=== PATIENT | male | born 1995 | race Caucasian/White ===

== ENCOUNTER 2019-10-04 07:40 | Emergency (ER) | payer OTHER, SELFPAY ==
[2019-10-04 07:44] VITALS: BP 156/78; PULSE 88; RESP 17; TEMP 36.9; O2SAT 99; BMI 29.0
--- NOTE | 2019-10-04 07:57 | ED.DCSUM_ITS ---
History of Present Illness Chief Complaint: Shortness of Breath Informant: Patient Onset: Hours - 2 Activity at onset: Light Activity - gradual onset Timing: Continuous Quality: - - tightness Current Severity: Moderate Maximum Severity: Moderate Worsened by: Exertion Relieved by: Albuterol - only very little help from his inhaler Associated Symptoms: Cough. 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 He has seasonal asthma. He frequently gets flareups with significant weather changes. Yesterday the temperatures were 50 degrees, clear with intermittent rain showers, this morning there is an inch of snow on the ground. States he has had some sinus congestion with a mild nonproductive cough for the past 3 months or so. No recent fevers. - Past Medical History (1) Seasonal asthma Status: Chronic Past Medical History - Allergies and Home Meds Allergies/Adverse Reactions: Allergies Penicillins [PCN] Allergy (Verified 10/04/19 07:41) Rash Primary Care Physician: Yordan Faust MD [Primary Care Provider] - Smoking Status: Never smoker Drugs: None Review of Systems General: Denies: Chills, Fever, Sweats Eyes: Denies: Visual changes - bilaterally, Diplopia ENT: Denies: Bilateral ear pain, Rhinorrhea, Sore throat Cardiovascular: Reports: Chest pain. Denies: Palpitations Respiratory: Reports: Dyspnea, Cough, Dyspnea on exertion. Denies: Sputum, Orthopnea Gastrointestinal: Denies: Abdominal pain, Nausea, Vomiting, Diarrhea, Melena, Hematochezia Genitourinary: Denies: Dysuria, Hematuria, Frequency Musculoskeletal: Denies: Back pain, Swelling, Extremity Pain Skin: Denies: Rash, Wounds Neurological: Denies: Headache, Weakness, Numbness Physical Exam Vital Signs/Narrative: Vital Signs Temp Pulse Resp BP Pulse Ox 10/04/19 07:44 98.5 F 88 17 156/78 H 99 Inital Vital Signs reviewed: Yes General: Well nourished, Well developed, No Acute Distress - speaking in full sentences Head: Normocephalic, Atraumatic Eyes: Perrl, EOMI ENT: Moist mucous membranes, No rhinorrhea. Negative for: Sinus tenderness Neck: Supple, Nontender, No lymphadenopathy Cardiovascular: Regular rate, Regular rhythm, No murmurs. Negative for: Tachycardia Respiratory: No distress, CTA bilaterally, Chest nontender Extremities: Nontender, No edema. Negative for: Calf Tenderness Skin: Normal color, No rash, No Trauma Neurological: Alert, Oriented x3, Cranial nerves II-XII grossly intact, Normal Strength, Normal Sensation, Normal Gait Psychological: Normal affect, Normal Mood Diagnostic/Tx/Re-eval Clinical Impression(s) from Imaging Studies Chest X-Ray 10/04/19 09:01 IMPRESSION: Normal x-ray examination of the chest. Electronically Signed: Logan Cancinojonathan, at 9:17 EDT , Service support , - Rhythm Strip Rhythm Strip: Sinus Tach Rate: 101 Ectopy: None - EKG Initial EKG Interpretation: No Acute Injury Pattern, Sinus Tachycardia Treatment - Dyspnea: Albuterol, Atrovent Repeat Evaluation: No change - Medical Decision Making Patient was initially given a duo nebulizer and albuterol aerosols, but he states it really did not help much. He still looks well clinically. I still think he is having reactive airway as the etiology of his symptoms, given the HPI and his history, but an EKG and chest x-ray were done to ensure we were not missing anything, these were normal. He was then given terbutaline and monitored, and he did have some improvement with that. He was placed on prednisone as well, that was started here, and he was given a prescription for a short burst and appropriate discharge instructions. ED Disposition - Plan for ED Patient: Disposition: Home or Assisted Living Diagnosis: Asthma with acute exacerbation Instructions: ED REACTIVE AIRWAY DISEASE Adult Prescriptions: Prednisone [Deltasone] 40 mg PO DAILY #10 tab Transmission Status: Pending to [facility]/pharmacy #[id number] Referrals: Yordan Faust MD [Primary Care Provider] - As Needed
[2019-10-04 08:08] VITALS: O2SAT 99
[2019-10-04 08:15] VITALS: PULSE 74; RESP 18
[2019-10-04] MEDS: Ipratropium/Albuterol Sulfate 3 ML AMPUL.NEB INHALATION (08:15)
[2019-10-04] MEDS: Albuterol 2.5 MG/3 ML VIAL.NEB. INHALATION (08:15)
--- NOTE | 2019-10-04 08:54 | EKG12_ITS ---
Test Reason : SOB Blood Pressure : / mmHG Vent. Rate : 101 BPM Atrial Rate : 101 BPM P-R Int : 156 ms QRS Dur : 096 ms QT Int : 366 ms P-R-T Axes : 047 -25 038 degrees QTc Int : 474 ms Sinus tachycardia Minimal voltage criteria for LVH, may be normal variant Borderline ECG Confirmed by ABEBE ORTEZ, RIANNA ([id number]), magazine editor DARRYN DWYER ([id number]) on 10/07/2019 8:35:45 AM Referred By: MALACHI Confirmed By:RIANNA LOMAS MD
[2019-10-04] MEDS: predniSONE 20 MG Tablet 40 MG PO (08:58)
--- NOTE | 2019-10-04 09:01 | RAD_ITS ---
STUDY: X-RAY CHEST REASON FOR EXAM: Male, 23 years old. INCREASED SOB x2 HOURS -- COUGH, CONGESTION -- HX OF ASTHMA TECHNIQUE: Single AP portable view of the chest. COMPARISON: Comparison is made with prior examination dated February 27, 2012. FINDINGS: The lungs are clear and expanded. There is no demonstrated pleural abnormality. Normal size heart. Normal mediastinum and festus. Normal visualized pulmonary arteries. Normal visualized aortic arch and descending thoracic aorta. Normal visualized thoracic spine. The patient is status post open reduction and internal fixation of the left clavicular fracture. The fracture is healed. There is no demonstrated abnormality of the visualized soft tissue structures of the upper abdomen. RAD/Chest 1 View (Portable) IMPRESSION: Normal x-ray examination of the chest. Electronically Signed: Logan Cadet, at 9:17 EDT , Service support ,
[2019-10-04] MEDS: Terbutaline 1 MG/ML Vial 0.25 MG SC (09:45)
[2019-10-04 09:46] VITALS: BP 118/74; PULSE 73; RESP 16; O2SAT 99
[2019-10-04 10:35] VITALS: BP 124/63; PULSE 73; RESP 15; O2SAT 100
== END 2019-10-04 10:36 | disposition home or self-care (01) ==
PROVIDERS: Emergency Provider Emergency Medicine; PCP Family Medicine
DX: J45.901 Unspecified asthma with (acute) exacerbation (principal)
CPT/HCPCS: 71045; 93005; 94640; 96372; 99282

== ENCOUNTER → 2019-12-13 09:44 | Outpatient (CLI) | payer OTHER, SELFPAY | PROVIDERS: PCP Family Medicine; Visit Provider Family Medicine | DX: R30.0 Dysuria (principal) | CPT/HCPCS: 87086 ==

== ENCOUNTER → 2020-06-01 | Outpatient (CLI) | payer OTHER, SELFPAY ==
[2020-01-31 07:50] VITALS: BMI 29.0
== END | disposition home or self-care (01) ==
PROVIDERS: PCP Family Medicine; Referring Provider Family Medicine; Visit Provider Family Medicine
DX: Z20.828 Contact with and (suspected) exposure to other viral communicable diseases (principal)
CPT/HCPCS: 87635; U0003

== ENCOUNTER → 2021-02-16 | Outpatient (CLI) | payer OTHER, SELFPAY | END | disposition home or self-care (01) | LOC: LAB 20:08 → LABSPEC 20:14 | PROVIDERS: PCP Family Medicine; Visit Provider Family Medicine | DX: Z20.822 Contact with and (suspected) exposure to COVID-19 (principal) | CPT/HCPCS: 87635; U0005; U0003 ==

== ENCOUNTER → 2021-06-21 | Outpatient (CLI) | payer OTHER, SELFPAY | END | disposition home or self-care (01) | PROVIDERS: PCP Family Medicine; Referring Provider Family Medicine; Visit Provider Family Medicine | DX: Z20.822 Contact with and (suspected) exposure to COVID-19 (principal) | CPT/HCPCS: 87635; U0005; U0003 ==

== ENCOUNTER → 2021-06-23 | Outpatient (CLI) | payer OTHER, SELFPAY | END | disposition home or self-care (01) | LOC: LABSPEC 17:14 | PROVIDERS: PCP Family Medicine; Visit Provider Nurse Practitioner Family | DX: Z20.822 Contact with and (suspected) exposure to COVID-19 (principal) | CPT/HCPCS: 87633; 87635; U0005; U0003 ==

== ENCOUNTER → 2022-03-01 | Outpatient (CLI) | payer OTHER, SELFPAY | END | disposition home or self-care (01) | PROVIDERS: PCP Family Medicine; Visit Provider Family Medicine | DX: Z20.822 Contact with and (suspected) exposure to COVID-19 (principal) | CPT/HCPCS: 87635; U0003; U0005 ==